=== PATIENT | male | born 1995 | race Caucasian/White ===

== ENCOUNTER 2020-04-29 23:21 | Emergency (ER) | payer OTHER ==
[2020-04-30] MEDS ORDERED: KETOROLAC 15 MG/ML 1 ML VIAL IVP STA (00:44)
--- NOTE | 2020-04-30 00:46 | ED ---
General Adult HPI - General Chief complaint: Allergic Reaction Stated complaint: allergic reaction Time Seen by Provider: 04/29/20 23:43 Source: patient Mode of arrival: ambulatory Limitations: no limitations - History of Present Illness Initial comments: 24-year-old male presents to the emergency department this evening for evaluation of symptoms related to an ALLERGIC reaction. Patient states he developed an isolated area of hives on his right forearm Friday which progressed throughout the evening Friday and became widespread during the early hours of Friday morning. Denies any shortness of breath, difficulty breathing, wheezing, or tightness in his chest. States he was seen at [facility] for these symptoms, as well as a fever and dry cough, yesterday morning and was prescribed a steroid and Pepcid to take in addition to Benadryl. Patient also states he was COVID tested which was negative. States his symptoms have improved since the initially, though he does have a few scattered hives across his face and back. Patient presents this evening concerned about increased swelling in his feet that becomes painful with ambulation. Patient denies any recent chills, abdominal pain, nausea, vomiting, diarrhea, constipation, back pain, numbness, tingling, dizziness, weakness, hematuria, dysuria, urinary urgency, urinary frequency, headache, visual changes, or any other complaints. - Related Data Allergies Allergy/AdvReac Type Severity Reaction Status Date / Time No Known Allergies Allergy Verified 04/29/20 23:33 Review of Systems ROS Statement: Those systems with pertinent positive or pertinent negative responses have been documented in the HPI. ROS Other: All systems not noted in ROS Statement are negative. Past Medical History Past Medical History: No Reported History History of Any Multi-Drug Resistant Organisms: None Reported Past Surgical History: Tonsillectomy Past Psychological History: ADD/ADHD, Anxiety Smoking Status: Former smoker Past Alcohol Use History: Rare Past Drug Use History: None Reported General Exam Limitations: no limitations (Well-developed, well-nourished male in no acute distress. Initial temperature 98.9F, pulse 107, respirations 18, blood pressure 128/77, pulse ox 97% on room air.) General appearance: alert, in no apparent distress Head exam: Present: normal inspection Eye exam: Present: normal appearance, PERRL. Absent: conjunctival injection, periorbital swelling ENT exam: Present: normal exam, normal oropharynx, mucous membranes moist Neck exam: Present: normal inspection. Absent: tenderness, meningismus, lymphadenopathy Respiratory exam: Present: normal lung sounds bilaterally. Absent: respiratory distress, wheezes, rales, rhonchi, stridor Cardiovascular Exam: Present: regular rate, normal rhythm, normal heart sounds. Absent: systolic murmur, diastolic murmur, rubs, gallop, clicks GI/Abdominal exam: Present: soft, normal bowel sounds. Absent: distended, tenderness, guarding, rebound, rigid Left Hand Wrist exam: Present: other (Palmar erythema) Vascular: Present: normal capillary refill. Absent: vascular compromise Right Hand Wrist exam: Present: other Vascular: Present: normal capillary refill (Pulmonary erythema). Absent: vascular compromise Left Foot/Toe exam: Present: normal inspection, tenderness (Tenderness upon palpation of the soles of the feet) Neurovascular tendon exam: Present: no vascular compromise (+2 pedal pulse, cap refill less than 3 seconds, skin warm, pink, and dry). Absent: abnormal cap refill Right Foot/Toe exam: Present: normal inspection, tenderness (Tenderness upon palpation of the soles of the feet) Neurovascular tendon exam: Present: no vascular compromise. Absent: pulse deficit, abnormal cap refill (+2 pedal pulse, cap refill less than 3 seconds, skin warm, pink, and dry) Back exam: Present: rash noted (Large patches of hives noted diffusely across back) Neurological exam: Present: alert, oriented X3, CN II-XII intact Psychiatric exam: Present: normal affect, normal mood Skin exam: Present: warm, dry, intact, rash (Small scattered hives across forehead, larger patches of hives clustered on the back) Course Vital Signs 04/29/20 04/30/20 04/30/20 23:29 01:54 EST 03:01 Temperature 98.9 F 98.3 F Pulse Rate 107 H 103 H 92 Respiratory 18 17 16 Rate Blood Pressure 128/77 141/87 128/91 O2 Sat by Pulse 97 98 98 Oximetry 04/30/20 04:12 Temperature Pulse Rate 92 Respiratory 18 Rate Blood Pressure 136/90 O2 Sat by Pulse 97 Oximetry Medical Decision Making - Medical Decision Making 24 year-old male patient presents to the emergency department today for evaluation of generalized rash, foot pain, and hand pain. Physical examination did reveal an urticarial type rash noted over the face, back, extremities. Does have erythema to the palmar surface of the bilateral hands. No abnormalities noted to the feet. They're very mild swelling of the hands and feet. Lungs are clear to auscultation with good air movement. No lip or tongue swelling. No trouble breathing. Labs were obtained and revealed elevated white blood cell count most likely due to steroid use. He is currently being treated with a prednisone taper, Pepcid, and Benadryl after being treated at [facility] 2 nights ago. Patient was given IV fluid, IV steroids, Pepcid, and subcu epinephrine. Upon reevaluation is resting comfortably in bed. Does report improvement of symptoms. He'll be discharged to continue steroids and Pepcid. He is given a starter pack for Tylenol with codeine for pain. He is instructed to follow-up with his primary care physician for recheck in 1-2 days. Return parameters were discussed in detail. He verbalizes understanding and agrees with this plan. - Lab Data Result diagrams: 04/30/20 01:04 EST 04/30/20 01:04 EST Lab Results 04/30/20 04/30/20 Range/Units 01:04 EST 01:04 EST WBC 14.9 H (3.8-10.6) k/uL RBC 5.44 (4.30-5.90) m/uL Hgb 15.6 (13.0-17.5) gm/dL Hct 47.4 (39.0-53.0) % MCV 87.0 (80.0-100.0) fL MCH 28.7 (25.0-35.0) pg MCHC 33.0 (31.0-37.0) g/dL RDW 12.5 (11.5-15.5) % Plt Count 311 (150-450) k/uL Neutrophils % 75 % Lymphocytes % 17 % Monocytes % 4 % Eosinophils % 1 % Basophils % 1 % Neutrophils # 11.2 H (1.3-7.7) k/uL Lymphocytes # 2.6 (1.0-4.8) k/uL Monocytes # 0.6 (0-1.0) k/uL Eosinophils # 0.2 (0-0.7) k/uL Basophils # 0.1 (0-0.2) k/uL Sodium 137 (137-145) mmol/L Potassium 3.9 (3.5-5.1) mmol/L Chloride 104 (98-107) mmol/L Carbon Dioxide 27 (22-30) mmol/L Anion Gap 6 mmol/L BUN 9 (9-20) mg/dL Creatinine 1.27 H (0.66-1.25) mg/dL Est GFR (CKD-EPI)AfAm 90 (>60 ml/min/1.73 sqM) Est GFR (CKD-EPI)NonAf 78 (>60 ml/min/1.73 sqM) Glucose 100 H (74-99) mg/dL Calcium 9.4 (8.4-10.2) mg/dL Total Bilirubin 0.9 (0.2-1.3) mg/dL AST 24 (17-59) U/L ALT 25 (4-49) U/L Alkaline Phosphatase 75 (38-126) U/L Total Protein 7.2 (6.3-8.2) g/dL Albumin 4.3 (3.5-5.0) g/dL Disposition Clinical Impression: Urticaria Disposition: HOME SELF-CARE Condition: Good Instructions (If sedation given, give patient instructions): Urticaria (ED) Additional Instructions: Continue steroids. Take Benadryl every 6 hours. Increase Pepcid to 20 mg twice daily. Follow-up with your primary care physician for recheck in 1-2 days. Re turn to the emergency department immediately should her symptoms worsen or change. Is patient prescribed a controlled substance at d/c from ED?: No Referrals: Jolly Alvarez DO [Primary Care Provider] - 1-2 days Time of Disposition: 04:04
[2020-04-30 01:23] LABS: Basophils # (A) 0.1 k/uL (0-0.2); Basophils % (A) 1 %; Eosinophils # (A) 0.2 k/uL (0-0.7); Eosinophils % (A) 1 %; HCT 47.4 % (39.0-53.0); HGB 15.6 gm/dL (13.0-17.5); Lymphocytes # (A) 2.6 k/uL (1.0-4.8); Lymphocytes % (A) 17 %; MCH 28.7 pg (25.0-35.0); Mean Platelet Volume 6.9; Monocytes # (A) 0.6 k/uL (0-1.0); Monocytes % (A) 4 %; Neutrophils # (A) 11.2 k/uL (1.3-7.7); Neutrophils % (A) 75 %; Platelet Count 311 k/uL (150-450); RBC 5.44 m/uL (4.30-5.90); RDW 12.5 % (11.5-15.5); WBC 14.9 k/uL (3.8-10.6)
[2020-04-30 01:32] LABS: Albumin 4.3 g/dL (3.5-5.0); Calcium 9.4 mg/dL (8.4-10.2); Potassium 3.9 mmol/L (3.5-5.1); Total Bilirubin 0.9 mg/dL (0.2-1.3); Total Protein 7.2 g/dL (6.3-8.2)
[2020-04-30 01:54] VITALS: TEMP 98.3
[2020-04-30] MEDS ORDERED: FAMOTIDINE 20 MG/2 ML VIAL IV STA (02:20)
[2020-04-30] MEDS ORDERED: methylPREDNISolone SOD SUCCI 125 MG/2 ML VIAL IV STA (02:20)
[2020-04-30] MEDS ORDERED: EPINEPHrine 1 MG/ML 1 ML AMP SQ STA (02:21)
[2020-04-30 03:01] VITALS: PULSE 92
[2020-04-30 04:12] VITALS: BP 136/90; RESP 18
[2020-04-30] MEDS ORDERED: ACET/COD 300 MG/30 MG STARTER PACK 6 TAB BTL PO STA (04:17)
== END 2020-04-30 04:21 | disposition home or self-care (01) ==
LOC: EC 23:21
DX: L50.9 Urticaria, unspecified (principal); D72.829 Elevated white blood cell count, unspecified; Z87.891 Personal history of nicotine dependence
CPT/HCPCS: 36415; 80053; 84443; 85025; 99283; 96374; 96375 ×2; 96372; J0171; J2930; J1885

== ENCOUNTER 2020-05-03 10:34 | Emergency (ER) | payer OTHER ==
[2020-05-03 10:45] VITALS: RESP 18
[2020-05-03] MEDS ORDERED: SODIUM CHLORIDE 0.9% 1,000 ML IV STA (11:09)
[2020-05-03] MEDS ORDERED: diphenhydrAMINE 50 MG/ML 1 ML VIAL IVP STA (11:09)
[2020-05-03] MEDS ORDERED: FAMOTIDINE 20 MG/2 ML VIAL IV STA (11:09)
[2020-05-03 11:39] VITALS: TEMP 98.1
--- NOTE | 2020-05-03 11:52 | XR ---
EXAMINATION TYPE: XR chest 2V DATE OF EXAM: 05/03/2020 COMPARISON: NONE TECHNIQUE: PA and lateral views submitted. HISTORY: Fever, cough and weakness FINDINGS: The lungs are clear and there is no pneumothorax, pleural effusion, or focal pneumonia. No overt fa ilure. Heart size normal. Slight curvature of the spine. No overt failure. IMPRESSION: 1. No acute process.
[2020-05-03 11:59] LABS: Basophils % (A) 0 %; Eosinophils # (A) 0.1 k/uL (0-0.7); Eosinophils % (A) 0 %; HCT 46.7 % (39.0-53.0); HGB 14.8 gm/dL (13.0-17.5); Lymphocytes # (A) 1.3 k/uL (1.0-4.8); Lymphocytes % (A) 9 %; MCH 28.5 pg (25.0-35.0); MCHC 31.8 g/dL (31.0-37.0); MCV 89.6 fL (80.0-100.0); Mean Platelet Volume 6.9; Monocytes # (A) 0.2 k/uL (0-1.0); Monocytes % (A) 1 %; Neutrophils # (A) 12.5 k/uL (1.3-7.7); Neutrophils % (A) 88 %; Platelet Count 353 k/uL (150-450); RBC 5.21 m/uL (4.30-5.90); RDW 12.6 % (11.5-15.5); WBC 14.1 k/uL (3.8-10.6)
[2020-05-03] MEDS ORDERED: ONDANSETRON 4 MG/2 ML VIAL IVP STA (12:11)
[2020-05-03 12:12] LABS: ALT 33 U/L (4-49); AST 35 U/L (17-59); African American GFR (CKD) >90 (>60 ml/min/1.73 sqM); Albumin 3.8 g/dL (3.5-5.0); Alkaline Phosphatase 66 U/L (38-126); Anion Gap 4 mmol/L; Blood Urea Nitrogen 14 mg/dL (9-20); C Reactive Protein 38.2 mg/L (<10.0); Calcium 8.7 mg/dL (8.4-10.2); Carbon Dioxide 23 mmol/L (22-30); Chloride 106 mmol/L (98-107); Glucose 171 mg/dL (74-99); Non-African American GFR(CKD) >90 (>60 ml/min/1.73 sqM); Potassium 4.7 mmol/L (3.5-5.1); Sodium 133 mmol/L (137-145); Total Bilirubin 0.4 mg/dL (0.2-1.3); Total Protein 6.4 g/dL (6.3-8.2)
--- NOTE | 2020-05-03 12:24 | ED ---
General Adult HPI - General Chief complaint: Allergic Reaction Stated complaint: rash revisit Time Seen by Provider: 05/03/20 11:00 Source: patient, RN notes reviewed Mode of arrival: ambulatory Limitations: no limitations - History of Present Illness Initial comments: 24-year-old male presents to the emergency department for hives. This is the patient's 3rd ER visit in 5 days for this complaint. Patient reports on Friday when it initially started he had hives which was isolated to the right forearm. This started to get worse at the evening and he was eventually seen at [facility] had he did have a slight cough at this time and was tested for Covid. He was started on steroids and Pepcid and Benadryl. Patient reports that symptoms did start to improve however worsened again. He did see his doctor who started him on amoxicillin, prednisone 40 mg daily, Pepcid. He has not had any new medications initiated prior to these hives. He does not recall any new or detergents or soaps that changed to cause this. He denies any slu rring of his lips tongue or throat or shortness of breath. He did have some swelling of his eyes when this first started Friday however has not had this since.Patient has no other complaints at this time including shortness of breath, chest pain, abdominal pain, nausea or vomiting, headache, or visual changes. - Related Data Home Medications Medication Instructions Recorded Confirmed Amoxicillin 500 mg PO BID 05/03/20 05/03/20 Cetirizine HCl [Zyrtec] 10 mg PO BID 05/03/20 05/03/20 Famotidine [Pepcid] 40 mg PO BID 05/03/20 05/03/20 buPROPion HCL [Wellbutrin XL] 300 mg PO DAILY 05/03/20 05/03/20 diphenhydrAMINE [Benadryl] 50 mg PO HS PRN 05/03/20 05/03/20 predniSONE [Deltasone] 60 mg PO DAILY 05/03/20 05/03/20 traZODone HCL [Desyrel] 50 mg PO HS 05/03/20 05/03/20 Previous Rx's Medication Instructions Recorded Dexamethasone [Decadron] 4 mg PO DAILY #4 tablet 05/03/20 hydrOXYzine HCL [Atarax] 25 mg PO TID PRN #20 tab 05/03/20 Allergies Allergy/AdvReac Type Severity Reaction Status Date / Time No Known Allergies Allergy Verified 05/03/20 11:24 Review of Systems ROS Statement: Those systems with pertinent positive or pertinent negative responses have been documented in the HPI. ROS Other: All systems not noted in ROS Statement are negative. Past Medical History Past Medical History: No Reported History History of Any Multi-Drug Resistant Organisms: None Reported Past Surgical History: Tonsillectomy Past Psychological History: ADD/ADHD, Anxiety Smoking Status: Former smoker Past Alcohol Use History: Rare Past Drug Use History: None Reported General Exam Limitations: no limitations General appearance: alert, in no apparent distress Head exam: Present: atraumatic, normocephalic, normal inspection Eye exam: Present: normal appearance, PERRL, EOMI. Absent: scleral icterus, conjunctival injection, periorbital swelling ENT exam: Present: normal exam, normal oropharynx (No swelling of the lips tongue or throat), mucous membranes moist, TM's normal bilaterally, normal external ear exam Neck exam: Present: normal inspection, full ROM. Absent: tenderness, meningismus, lymphadenopathy Respiratory exam: Present: normal lung sounds bilaterally. Absent: respiratory distress, wheezes, rales, rhonchi, stridor Cardiovascular Exam: Present: regular rate, normal rhythm, normal heart sounds. Absent: systolic murmur, diastolic murmur, rubs, gallop, clicks GI/Abdominal exam: Present: soft, normal bowel sounds. Absent: distended, tenderness, guarding, rebound, rigid Skin exam: Present: urticaria (Patient has urticarial rash noted to face extremities and torso.) Course Vital Signs 05/03/20 05/03/20 10:39 11:37 Temperature 99.5 F 98.1 F Pulse Rate 103 H 98 Respiratory 18 18 Rate Blood Pressure 151/90 133/78 O2 Sat by Pulse 96 97 Oximetry Medical Decision Making - Medical Decision Making Vitals are stable. HPI and physical exam as documented. CBC does show leukocytosis however this is likely reactive to steroids. CMP is unremarkable. CRP shows a slight elevation at 38.2. Chest x-ray shows no acute process. Patient does not have any signs of anaphylaxis or swelling of the lips tongue or throat. No angioedema. We will change Benadryl to Atarax and try Decadron instead of prednisone. He was given a dose here in the emergency room. At this time patient will be discharged home to follow up with dermatology and primary care. He was instructed to return should he have any worsening symptoms such as swelling of the lips tongue or throat or shortness of breath. - Lab Data Result diagrams: 05/03/20 11:29 05/03/20 11:29 Lab Results 05/03/20 05/03/20 Range/Units 11:29 11:29 WBC 14.1 H (3.8-10.6) k/uL RBC 5.21 (4.30-5.90) m/uL Hgb 14.8 (13.0-17.5) gm/dL Hct 46.7 (39.0-53.0) % MCV 89.6 (80.0-100.0) fL MCH 28.5 (25.0-35.0) pg MCHC 31.8 (31.0-37.0) g/dL RDW 12.6 (11.5-15.5) % Plt Count 353 (150-450) k/uL Neutrophils % 88 % Lymphocytes % 9 % Monocytes % 1 % Eosinophils % 0 % Basophils % 0 % Neutrophils # 12.5 H (1.3-7.7) k/uL Lymphocytes # 1.3 (1.0-4.8) k/uL Monocytes # 0.2 (0-1.0) k/uL Eosinophils # 0.1 (0-0.7) k/uL Basophils # 0.0 (0-0.2) k/uL Sodium 133 L (137-145) mmol/L Potassium 4.7 (3.5-5.1) mmol/L Chloride 106 (98-107) mmol/L Carbon Dioxide 23 (22-30) mmol/L Anion Gap 4 mmol/L BUN 14 (9-20) mg/dL Creatinine 1.03 (0.66-1.25) mg/dL Est GFR (CKD-EPI)AfAm >90 (>60 ml/min/1.73 sqM) Est GFR (CKD-EPI)NonAf >90 (>60 ml/min/1.73 sqM) Glucose 171 H (74-99) mg/dL Calcium 8.7 (8.4-10.2) mg/dL Total Bilirubin 0.4 (0.2-1.3) mg/dL AST 35 (17-59) U/L ALT 33 (4-49) U/L Alkaline Phosphatase 66 (38-126) U/L C-Reactive Protein 38.2 H (<10.0) mg/L Total Protein 6.4 (6.3-8.2) g/dL Albumin 3.8 (3.5-5.0) g/dL Disposition Clinical Impression: Urticaria Disposition: HOME SELF-CARE Condition: Good Instructions (If sedation given, give patient instructions): Urticaria (ED) Additional Instructions: Please take Atarax instead of Benadryl. Please take Decadron instead of prednisone. Continue Pepcid and amoxicillin. Follow-up with your doctor and d ermatology in 1-2 days. You have any worsening symptoms such as swelling of the lips tongue or throat or shortness of breath return to the emergency room. Prescriptions: hydrOXYzine HCL [Atarax] 25 mg PO TID PRN #20 tab PRN Reason: Itching Dexamethasone [Decadron] 4 mg PO DAILY #4 tablet Is patient prescribed a controlled substance at d/c from ED?: No Referrals: Luis Rubin DO [Primary Care Provider] - 1-2 days Trina Bland MD [STAFF PHYSICIAN] - 1-2 days Uzair Abarca MD [STAFF PHYSICIAN] - 1-2 days Time of Disposition: 12:53
[2020-05-03] MEDS ORDERED: DEXAMETHASONE SOD PHOSPHATE 10 MG/ML 1 ML VIAL IV STA (12:43)
[2020-05-03 13:27] VITALS: BP 137/80; PULSE 78
== END 2020-05-03 13:20 | disposition home or self-care (01) ==
LOC: EC 10:34
DX: L50.0 Allergic urticaria (principal); F41.9 Anxiety disorder, unspecified; Z79.899 Other long term (current) drug therapy; Z87.891 Personal history of nicotine dependence
CPT/HCPCS: 36415; 80053; 85025; 86140; 71046; 99283; 96374; 96375 ×3; 96361; U0003; J1200; J2405

== ENCOUNTER 2021-11-21 18:09 | Emergency (ER) | payer OTHER ==
[2021-11-21] MEDS ORDERED: ACETAMINOPHEN TAB 500 MG TAB PO STA (20:14)
[2021-11-21 20:16] VITALS: RESP 20; TEMP 98
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
--- NOTE | 2021-11-21 20:57 | XR ---
EXAMINATION TYPE: XR cervical spine comp DATE OF EXAM: 11/21/2021 COMPARISON: NONE HISTORY: Neck pain TECHNIQUE: 5 views FINDINGS: Cervical vertebra have normal spacing and alignment. Posterior element are intact. Neural f oramina are widely patent. Atlantoaxial facet joint is normal. There are no cervical ribs. IMPRESSION: Negative cervical spine exam. No fracture.
--- NOTE | 2021-11-21 20:58 | XR ---
EXAMINATION TYPE: XR thoracic spine 2V DATE OF EXAM: 11/21/2021 COMPARISON: NONE HISTORY: Pain TECHNIQUE: 3 views FINDINGS: Thoracic vertebra have normal spacing and alignment. Posterior element are intact. No felicita nehal mass. No compression fracture. IMPRESSION: Negative thoracic spine exam.
[2021-11-21 21:41] VITALS: BP 168/78; PULSE 76
== END 2021-11-21 21:39 | disposition home or self-care (01) ==
LOC: EC 18:09
DX: S39.012A Strain of muscle, fascia and tendon of lower back, initial encounter (principal); Z87.891 Personal history of nicotine dependence; V49.9XXA Car occupant (driver) (passenger) injured in unspecified traffic accident, initial encounter; Y93.89 Activity, other specified
CPT/HCPCS: 72050; 72070; 99284